=== PATIENT | female | born 1970 ===

== ENCOUNTER 2025-06-07 10:01 | Day surgery (SDC) | payer BC ==
[2025-06-07] VITALS (10 sets, daily range): BP systolic 89–129; BP diastolic 60–80
[~2025-06-07] VITALS: Ht 162.6 cm; Wt 74.0 kg
--- NOTE | 2025-06-07 10:42 | NUR ---
06/07/25 1042 Erika Joseph CONFIRMED AND REVIEWED H&P, MEDCICATIONS, ALLERGIES, MEDICAL HISTORY, RESPIRATORY HISTORY, VITAL SIGNS, 3-LEAD EKG, CONSENTS, AND PHYSICIAN ORDERS. PATIENT CONFIRMS NPO STATUS AND AGREES WITH SCHEDULED PROCEDURE. MONITOR INTACT WITH CONTINUOUS PULSE OXIMETRY, CAPNOGRAPHY, 3-LEAD EKG, INTERMITTENT BP. SUPPLEMENTAL O2 TO BE TITRATED THROUGHOUT PROCEDURE TO MAINTAIN O2 SATURATION ABOVE 90%. PATIENT DETERMINED TO BE ASA APPROPRIATE FOR PROPOFOL SEDATION PRIOR TO START OF PROCEDURE BY DR. LOPEZ.
--- NOTE | 2025-06-07 11:11 | NUR ---
Patient States Post-Procedure ride home has been arranged. Discharged via wheelchair to private car for ride home. Discharge instructions reviewed with patient. Patient verbalizes understanding. Copy given to patient to take home.
== END 2025-06-07 23:00 | disposition home or self-care (01) ==
LOC: ORSCMMR 10:01
PROVIDERS: Surgery
PROC: 0DJD8ZZ Inspection of Lower Intestinal Tract, Via Natural or Artificial Opening Endoscopic (ICD-10-PCS; principal; 2025-06-07 11:00)
DX: Z12.11 Encounter for screening for malignant neoplasm of colon (principal); Z83.719 Family history of colon polyps, unspecified; K64.0 First degree hemorrhoids
CPT/HCPCS: J2704; J7120